=== PATIENT | female | born 1970 | race Caucasian/White ===

== ENCOUNTER 2019-12-05 01:10 | Outpatient (CLI) | payer BC, SELFPAY ==
[2019-12-05 17:41] LABS: SARS-CoV-2 RNA PCR Negative
== END 2019-12-05 01:11 | disposition home or self-care (01) ==
LOC: ANHCOVIDDT 01:10
PROVIDERS: PCP Family Medicine; Visit Provider Internal Medicine Gastroenterology
DX: Z01.812 Encounter for preprocedural laboratory examination (principal); Z20.828 Contact with and (suspected) exposure to other viral communicable diseases
CPT/HCPCS: 87635; C9803; U0003

== ENCOUNTER 2019-12-07 01:20 | Day surgery (SDC) | payer BC, SELFPAY ==
[2019-12-01 14:35] VITALS: BMI 29.9
[2019-12-07 08:46] VITALS: BP 108/63; PULSE 80; RESP 18; TEMP 36.6; O2SAT 98; BMI 30.9
[2019-12-07] MEDS: LACTATED RINGERS 1,000 ML 150 ML IV CONT (08:56)
--- NOTE | 2019-12-07 09:07 | P.PNAN_ITS ---
Anes - Initial Pre Proc Eval Procedure: Operation Date: 12/07/19 09:30 Proposed Procedures p Screening Colonoscopy - Arcenio Joe MD Date/Time: 12/07/19 09:07 Surgeon: Arcenio Joe MD Pre Op Diagnosis: Neoplasm Screening Patient Data Age: 49 Gender: F Height: 5 ft 6 in Weight: 86.9 kg Last Vital Signs Temp 97.8 F 12/07/19 08:46 Pulse 80 12/07/19 08:46 Resp 18 12/07/19 08:46 BP 108/63 12/07/19 08:46 Pulse Ox 98 12/07/19 08:46 Allergies Allergy/AdvReac Type Severity Reaction Status Date / Time No Known Allergies Allergy Verified 12/07/19 08:45 Home Medications Medication Instructions Recorded Confirmed Type peg 3350-electrolytes 236 240 ml PO Q10M #4000 ml 11/01/19 Rx gram-22.74 gram-6.74 gram-5.86 gram solution methylphenidate HCl 10 mg PO DAILY 12/01/19 12/07/19 History Patient hx anesthesia problems: none Family hx anesthesia problems: none [facility] Past Medical History Medical History (Updated 12/07/19 @ 09:07 by Calixto Gannon MD) ADHD (attention deficit hyperactivity disorder) Arthritis Social History Social History (Updated 10/21/19 @ 09:29 by Genia Gilbert) Social History: Smoking status: Never smoker Second hand tobacco smoke exposure: No Alcohol intake: current Drinks per week: 2 Substance use: never Substance use type: does not use Living arrangements: with family Gender identity (if verbalized by the patient): Female Spiritual care concerns: No Anes - Eval Final PreProcedure Day of Procedure 12/07/19 09:07 Patient weight: overweight Heart: regular rate and rhythm Lungs: clear to auscultation Airway: Mallampati scale class II Neurological: alert and oriented Last oral intake: >/= 8 hours ASA classification: II Emergent: no Anesthetic plan: proceed Anesthesia type and monitoring: general GIVS and standard monitoring Informed Consent: The patient's anesthetic plan and its attendant risks and benefits were discussed with the patient/family/POA. Questions were solicited and answers provided to the satisfaction of the patient/family/POA.
--- NOTE | 2019-12-07 09:15 | PM.HPGS ---
History of Present Illness History of Present Illness Consent: Risks, benefits, and alternatives have been discussed and questions answered. Patient agrees to proceed with procedure. Chief complaint: Neoplasm Screening Narrative: Dali Quiñones is a 49 year old female here for first screening colonoscopy Review of Systems Constitutional: Constitutional: Denies headache(s) and Denies weakness Eyes: Eyes: Denies blurry vision ENT: Reports Normal hearing present, Denies headache(s) and Denies neck pain Cardiovascular: Cardiovascular: Denies chest pain and Denies dyspnea Respiratory: Respiratory: Denies dyspnea Gastrointestinal: Gastrointestinal: Reports no additional gastrointestinal complaints Genitourinary: Genitourinary: Denies dysuria Musculoskeletal: Musculoskeletal: Denies neck pain Integumentary/Breasts: Skin/Breast: Denies dry skin Neurologic: Reports Normal hearing present, Denies headache(s) and Denies weakness Psychiatric: Psychiatric: Denies anxiety Endocrine: Endocrine: Denies change in body appearance Hematologic/Lymphatic: Hematologic/Lymphatic: Denies easy bleeding Allergic/Immunologic: Allergic/Immunologic: Denies urticaria [facility] Past Medical History Medical History (Updated 12/07/19 @ 09:15 by Arcenio Joe MD) ADHD (attention deficit hyperactivity disorder) Arthritis Colon cancer screening Social History Social History (Updated 10/21/19 @ 09:29 by Genia Gilbert) Social History: Smoking status: Never smoker Second hand tobacco smoke exposure: No Alcohol intake: current Drinks per week: 2 Substance use: never Substance use type: does not use Living arrangements: with family Gender identity (if verbalized by the patient): Female Spiritual care concerns: No Meds Home Medications and Allergies Home Medications Medication Instructions Recorded Confirmed Type peg 3350-electrolytes 236 240 ml PO Q10M #4000 ml 11/01/19 Rx gram-22.74 gram-6.74 gram-5.86 gram solution methylphenidate HCl 10 mg PO DAILY 12/01/19 12/07/19 History Allergies Allergy/AdvReac Type Severity Reaction Status Date / Time No Known Allergies Allergy Verified 12/07/19 08:45 Vital Signs Vital Signs - 24 hr 12/07/19 08:46 Temperature 97.8 F Pulse Rate 80 Respiratory Rate 18 Blood Pressure 108/63 Pulse Oximetry 98 Exam Const: General: comfortable and no acute distress HENMT: General nose exam: Normal nares present Eyes: General: appearance normal, both eyes and all related structures Neck: Neck: no JVD Resp: Auscultation: clear to auscultation bilaterally Cardio: Rate: regular rate Rhythm: regular rhythm GI: Inspection: non-distended GI Palp: Yes Soft to palpation Skin: General skin exam: normal color Neuro: General: gait normal Speech: normal speech Extrem: General: normal to inspection Psych: Mental Status: mental status grossly normal Assessment and Plan Assessment and plan (1) Colon cancer screening: Code(s): Z12.11 - Encounter for screening for malignant neoplasm of colon Status: Acute Assessment and Plan: will proceed with colonoscopy
[2019-12-07 09:38] VITALS: BP 106/59; PULSE 86; RESP 28; O2SAT 97
[2019-12-07 09:48] VITALS: BP 109/61; PULSE 77; RESP 17; O2SAT 96
[2019-12-07 09:58] VITALS: BP 104/68; PULSE 70; RESP 17; O2SAT 100
== END 2019-12-07 10:00 | disposition home or self-care (01) ==
PROVIDERS: PCP Family Medicine; Visit Provider Internal Medicine Gastroenterology
PROC: 0DJD8ZZ Inspection of Lower Intestinal Tract, Via Natural or Artificial Opening Endoscopic (ICD-10-PCS; CPT 45378; principal; 2019-12-07 09:30)
DX: Z12.11 Encounter for screening for malignant neoplasm of colon (principal); F90.9 Attention-deficit hyperactivity disorder, unspecified type
CPT/HCPCS: 45378; J2704; J7120

== ENCOUNTER → 2019-12-21 13:28 | Outpatient (CLI) | payer BC, SELFPAY ==
--- NOTE | ~2019-12-21 | MM_ITS ---
EXAMINATION: MM screening andrew BI w cortes HISTORY: Screening TECHNIQUE: Craniocaudal and mediolateral oblique 3-D tomosynthesis images were obtained and synthetic 2-D images were generated. CAD analysis was submitted and interpreted. COMPARISON: Comparison to multiple prior studies sequentially, with oldest reviewed study dated 11/16. BREAST PARENCHYMAL COMPOSITION: There are scattered areas of fibroglandular density. FINDINGS: There is no evidence of suspicious mass, calcification, or architectural distortion to sugg est malignancy in either breast. There has been no suspicious interval change. IMPRESSION: 1. No mammographic evidence of malignancy. 2. Recommend routine screening mammography in one year. BI-RADS Category 1: Negative Reviewed, dictated and finalized at location D. DER TRIMMER
== END ==
PROVIDERS: Visit Provider Family Medicine
DX: Z12.31 Encounter for screening mammogram for malignant neoplasm of breast (principal)
CPT/HCPCS: 77063; 77067

== ENCOUNTER 2020-06-12 10:42 | Outpatient (CLI) | payer BC, SELFPAY ==
--- NOTE | ~2020-06-12 | US_ITS ---
US abdomen limited INDICATION: Right upper quadrant pain PROCEDURE: Realtime right upper abdominal ultrasound. COMPARISON: No prior studies for comparison. FINDINGS: The pancreas is normal without focal mass or pancreatic ductal dilation. Liver echotexture is increased, consistent with fatty infiltration. There is normal directional flow in the portal ve in. The gallbladder is normal without stones, gallbladder wall thickening or pericholecystic fluid. Comm on bile duct measures 3 mm. No sonographic Joseph's sign. IMPRESSION: 1: Hepatic steatosis. Reviewed, dictated and finalized at location B. IMPRESSION: 1: Hepatic steatosis.
--- NOTE | ~2020-06-12 | XR_ITS ---
EXAMINATION: XR abdomen obstructive series DATE: 06/12/2020 10:58 INDICATION: Right upper quadrant abdominal pain TECHNIQUE: Supine and upright views of the abdomen. FINDINGS: No prior studies for comparison. The visualized lung parenchyma is normal.. There is a nonobstructed bowel gas pattern. Gas and stool are seen throughout the colon to the level of the rectum. There is no free air. Lung bases are unrem arkable. There are pelvic phleboliths. IMPRESSION: 1. No acute abdominal abnormality. Reviewed, dictated and finalized at location B.
== END 2020-06-12 10:43 | disposition home or self-care (01) ==
PROVIDERS: PCP Family Medicine; Visit Provider Family Medicine
DX: R14.0 Abdominal distension (gaseous) (principal); R10.11 Right upper quadrant pain; K76.0 Fatty (change of) liver, not elsewhere classified
CPT/HCPCS: 74019; 76705

== ENCOUNTER 2022-06-17 11:26 | Outpatient (CLI) | payer BC, SELFPAY ==
--- NOTE | ~2022-06-17 | XR_ITS ---
Left Shoulder Technique: AP and scapular Y views were obtained. Clinical History: Pain Findings: No fracture or dislocation is seen. Osseous alignment is anatomic. There is mild AC joint d egenerative change. Glenohumeral joint is intact. Soft tissues are unremarkable. Impression: . Mild AC joint degenerative change. Reviewed, dictated and finalized at location . Impression: . Mild AC joint degenerative change.
== END 2022-06-17 11:27 | disposition home or self-care (01) ==
PROVIDERS: PCP Family Medicine; Visit Provider Nurse Practitioner Gerontology
DX: M25.512 Pain in left shoulder (principal)
CPT/HCPCS: 73030

== ENCOUNTER 2022-06-18 07:48 | Outpatient (CLI) | payer BC, SELFPAY ==
[2022-06-18 08:35] LABS: Basophils Absolute Auto 0.1 K/mm3 (0.0-0.1); Eosinophils Absolute Auto 0.3 K/mm3 (0-0.3); Eosinophils Percent Auto 4.1 % (0-4.4); Hematocrit 44.2 % (37.0-47.0); Hemoglobin 14.3 g/dL (12.0-15.0); Immature Granulocyte Absolute 0.04 K/mm3 (0.00-0.031); Immature Granulocyte Percent A 0.5 % (0-0.5); Lymphocytes Absolute Auto 2.36 K/mm3 (0.9-3.2); Lymphocytes Percent Auto 29.2 % (18.3-44.2); Mean Corpuscular HGB Conc 32.4 g/dl (32-36); Mean Corpuscular Hemoglobin 26.7 pg (26-34); Mean Corpuscular Volume 82.6 fl (80-100); Mean Platelet Volume 11.7 fl (7.4-10.4); Monocytes Absolute Auto 0.4 K/mm3 (0.1-0.6); Monocytes Percent Auto 5.4 % (2.6-8.5); Neutrophils Absolute Auto 4.8 K/mm3 (1.3-6.7); Neutrophils Percent Auto 59.8 % (45.5-73.1); Platelet Count Result 258 k/mm3 (150-375); Red Blood Count 5.35 M/mm3 (4.2-5.4); Red Cell Distribution Width 14.2 % (11.5-14.5); White Blood Count 8.1 K/mm3 (4.5-10.0)
[2022-06-18 08:44] LABS: Alanine Aminotransferase 86 U/L (6-35); Albumin Level 4.5 g/dL (3.5-5.1); Anion Gap 9 mmol/L (8-16); Aspartate Amino Transferase 45 U/L (14-36); Bilirubin,Total 0.5 mg/dL (0.2-1.3); Blood Urea Nitrogen 16 mg/dL (7-17); Calcium 9.4 mg/dL (8.4-10.2); Carbon Dioxide 25 mmol/L (22-30); Chloride 107 mmol/L (98-107); Estimated Glomerular Filt Rate > 60; Glucose 116 mg/dL (65-110); Sodium 141 mmol/L (137-145)
[2022-06-18 08:45] LABS: Alkaline Phosphatase 81 U/L (38-126); Cholesterol 202 mg/dL (0-200); HDL Direct 50 mg/dL; Triglycerides 116 mg/dL (<150)
[2022-06-18 08:55] LABS: LDL Cholesterol Direct 127 mg/dL
== END 2022-06-18 07:49 | disposition home or self-care (01) ==
PROVIDERS: PCP Family Medicine; Visit Provider Nurse Practitioner Gerontology
DX: Z00.00 Encounter for general adult medical examination without abnormal findings (principal)
CPT/HCPCS: 36415; 80053; 80061; 84443; 85025

== ENCOUNTER 2022-07-30 15:00 | Outpatient (CLI) | payer BC, SELFPAY ==
[2022-07-31 07:56] LABS: Anion Gap 6 mmol/L (8-16); Carbon Dioxide 28 mmol/L (22-30); Chloride 102 mmol/L (98-107); Potassium 3.8 mmol/L (3.4-5.0); Sodium 136 mmol/L (137-145)
[2022-07-31 07:57] LABS: Alanine Aminotransferase 76 U/L (6-35); Albumin Level 4.5 g/dL (3.5-5.1); Alkaline Phosphatase 62 U/L (38-126); Aspartate Amino Transferase 60 U/L (14-36); Blood Urea Nitrogen 14 mg/dL (7-17); Calcium 9.1 mg/dL (8.4-10.2); Estimated Glomerular Filt Rate > 60; Glucose 95 mg/dL (65-110); Total Protein 7.6 g/dL (6.3-8.2)
[2022-07-31 07:59] LABS: Hemoglobin A1C 5.5 % (<5.7)
== END 2022-07-30 15:01 | disposition home or self-care (01) ==
LOC: ANHLAB 15:01
PROVIDERS: PCP Family Medicine; Visit Provider Physician Assistant
DX: R73.01 Impaired fasting glucose (principal); R74.8 Abnormal levels of other serum enzymes
CPT/HCPCS: 36415; 80053; 83036

== ENCOUNTER 2022-08-07 09:59 | Outpatient (CLI) | payer BC, SELFPAY ==
--- NOTE | ~2022-08-07 | US_ITS ---
Abdominal Sonogram: Real-time sonographic imaging of the abdomen was performed. Clinical History: Abnormal serum enzymes Findings: The liver appears echogenic, with no evidence of mass lesion or bile duct dilatation. Main portal vein demonstrates normal direction of flow. The spleen is normal in size without evidence of focal lesion. The gallbladder is well distended, and appears normal with no evidence of gallstone or wall thickening. The common bile duct measures 5 mm. The visualized pancreas, aorta, and IVC are un remarkable. The right kidney measures 10.7 cm in length and the left kidney measures 11.3 cm. There is no hydronephrosis or renal calculus. Impression: Diffuse fatty infiltration of the liver. Reviewed, dictated and finalized at location M. Impression: Diffuse fatty infiltration of the liver.
== END 2022-08-07 10:00 | disposition home or self-care (01) ==
PROVIDERS: PCP Family Medicine; Visit Provider Nurse Practitioner Gerontology
DX: R74.8 Abnormal levels of other serum enzymes (principal); K76.0 Fatty (change of) liver, not elsewhere classified
CPT/HCPCS: 76700

== ENCOUNTER 2022-09-17 09:00 | Outpatient (RCR) | payer BC, SELFPAY ==
--- NOTE | 2022-07-21 16:56 | PTOPEVAL1 ---
Assessment and note entered by Buster Llamas, PT, DPT Evaluation Information Assessment Status Evaluation Diagnosis L shoulder pain Onset 4 months Subjective Information Pt states initial she just realized she could not sleep on her L shoulder. She denies a BERLIN. She states it has progressed to not being able to reach over head and pain when using her shoulder. She denies pain at rest. She states when reaching overhead it will be a sharp pain and it makes multiple minutes for the pain to desipates. 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 Reported Pain Level Pain Score 1: Self Report Assessment PT Clinical Summary Dali presents to therapy today for her initial evaluation with a diagnosis of L shoulder impingement. Today she demonstrates decreased active shoulder ROM on the L compared to R, decreased strength against resistance, and tenderness to palpation. Skilled physical therapy services are indicated to address the deficits noted above, to improve posture and body mechanics , to manage pain, and to return to PLOF. Plan of Care Interventions Electrical Stimulation,Gait Training,Hot Pack/Cold Pack,Manual Therapy,Neuro Re-education,Patient/ Caregiver Educati,Therapeutic Activities, Therapeutic Exercise,Ultrasound PT Services Indicated Yes Treatment Frequency and 2x/ wk for 4wks Duration These treatments will address the objective and functional deficits as defined above. The patient will be advanced safely and appropriately in order for the patient to progress towards his/her prior level of function. Additional exercises will be introduced and as well as a comprehensive home exercise program upon discharge, if needed, ?to ensure carryover of functional gains achieved in the clinic. This treatment plan has been reviewed and agreement upon by the patient.
--- NOTE | 2022-07-22 13:31 | OPREHPOC ---
Outpatient Therapy Plan of Care This is a Multidisciplinary Plan of Care that may contain components documented by all disciplines (PT, OT, and ST.) PT Problem 1 PT Problem #1 Knowledge Deficit PT Goal 1 Goal Pt to be IND with issued HEP Target Visit 8 PT Problem 2 PT Problem #2 Pain PT Goal 1 Goal Pt to report shoulder pain no greater than 3/10 in the last week Target Visit 8 PT Goal 2 Goal Pt to report 75% improvement in overall symptoms Target Visit 8 PT Problem 3 PT Problem #3 Impaired Range of Motion PT Goal 1 Goal Pt to improve active shoulder abduction ROM to 140 deg Target Visit 8 PT Goal 2 Goal Pt to increased functional shoulder int rot ROM T10 Target Visit 8 PT Problem 4 PT Problem #4 Impaired Strength PT Goal 1 Goal Pt to increased L shoulder strength equal to R shoulder Target Visit 8 PT Goal 2 Goal Pt to be able to lift 5lb overhead without an increase in symptoms Target Visit 8
--- NOTE | 2022-08-11 09:33 | PCPTNOTE ---
Patient called & cancelled scheduled appointment this date due to being sick.
--- NOTE | 2022-08-18 11:14 | PCPTNOTE ---
Pt NS her appt today stating she had her days mixed up. She was reminded of her next appt, a re-eval.
--- NOTE | 2022-08-20 09:56 | PTOPPROG ---
Assessment and note entered by Buster Llamas, PT, DPT Evaluation Information Assessment Status Progress Diagnosis L shoulder pain Onset 4 months Subjective Information Pt states overall her shoulder is doing very good. She reports 80% improvement in her overall symptoms. She states daily tasks have improved. Pt reports one twinge of pain in the last week. Assessment PT Clinical Summary Dali presents to therapy today for her progress report following 6 visits of skilled therapy to treat her diagnosis of L shoulder impingement. Today she demonstrates improve shoulder abduction which is now equal to her uninvolved side, but continues to have decreased shoulder flexion and internal rotation compared to her R side. Her strength has improved but still has minor limitations d/t musca endurance. Continuation of skilled therapy services are indicated address remaining goals and to limit functional impairments. Plan of Care Interventions Electrical Stimulation,Gait Training,Hot Pack/Cold Pack,Manual Therapy,Neuro Re-education,Patient/ Caregiver Educati,Therapeutic Activities, Therapeutic Exercise,Ultrasound PT Services Indicated Yes Treatment Frequency and 1x/ wk for 4wks Duration These treatments will address the objective and functional deficits as defined above. The patient will be advanced safely and appropriately in order for the patient to progress towards his/her prior level of function. Additional exercises will be introduced and as well as a comprehensive home exercise program upon discharge, if needed, ?to ensure carryover of functional gains achieved in the clinic. This treatment plan has been reviewed and agreement upon by the patient.
--- NOTE | 2022-09-17 09:46 | PTOPDC ---
Assessment and note entered by Buster Llamas, PT, DPT Evaluation Information Assessment Status Discharge Diagnosis L shoulder pain Onset 4 months Subjective Information Pt states overall her shoulder is going well. She can see herself continuing to improve. She states she is not 100% yet but at least 90% improvement with reaching behind her back being the largest difficulty. Reported Pain Level Pain Score 0: Self Report Assessment PT Clinical Summary Dali presents to therapy today for her progress report following 10 visits of skilled therapy to treat her diagnosis of L shoulder impingement. Today she demonstrates improved active shoulder ROM in all directions. She continues to have minor int rot deficits but this continues to progress. She reports an 90% return to PLOF. She would like to continue her HEP on her own since she is doing so well. She will therefore be discharged at this time. Plan of Care PT Services Indicated No
== END 2022-09-17 10:08 | disposition home or self-care (01) ==
LOC: ANHGOSHPT 09:00
PROVIDERS: PCP Family Medicine; Visit Provider Physician Assistant Surgical
DX: M75.42 Impingement syndrome of left shoulder (principal)
CPT/HCPCS: 97032; 97110; 97112; 97140; 97161; 97530; 99199

== ENCOUNTER 2022-09-29 07:29 | Outpatient (CLI) | payer BC, SELFPAY ==
--- NOTE | ~2022-09-29 | MM_ITS ---
EXAMINATION: MM screening andrew BI w cortes HISTORY: Screening TECHNIQUE: Craniocaudal and mediolateral oblique 3-D tomosynthesis images were obtained and synthetic 2-D images were generated. CAD analysis was submitted and interpreted. COMPARISON: Comparison to multiple prior studies sequentially, with oldest reviewed study dated 04/2014. BREAST PARENCHYMAL COMPOSITION: There are scattered areas of fibroglandular density. FINDINGS: There is a new mass in the lower central aspect of the right breast near the areola. The le ft breast is stable without evidence for malignancy. IMPRESSION: 1. New right breast mass anteriorly, lower inner aspect. 2. Additional mammographic views and possible breast ultrasound are recommended. BI-RADS Category 0: Incomplete: Needs additional imaging evaluation. Reviewed, dictated and finalized at location A. IMPRESSION: 1. New right breast mass anteriorly, lower inner aspect. 2. Additional mammographic views and possible breast ultrasound are recommended . BI-RADS Category 0: Incomplete: Needs additional imaging evaluation.
== END 2022-09-29 07:30 | disposition home or self-care (01) ==
LOC: ANHIMG 07:32
PROVIDERS: PCP Family Medicine; Visit Provider Nurse Practitioner Gerontology
DX: Z12.31 Encounter for screening mammogram for malignant neoplasm of breast (principal); R92.8 Other abnormal and inconclusive findings on diagnostic imaging of breast
CPT/HCPCS: 77063; 77067

== ENCOUNTER → 2022-10-16 08:21 | Outpatient (CLI) | payer BC, SELFPAY ==
--- NOTE | ~2022-10-16 | MMUS_ITS ---
EXAMINATION: MM diagnostic andrew RT w cortes, US breast RT limited HISTORY: Right breast mass on screening mammogram TECHNIQUE: Additional 3-D tomosynthesis images of the right breast were performed and synthetic 2-D i mages were generated. CAD analysis was submitted and interpreted. High resolution limited right breas t ultrasound was performed. COMPARISON: 09/29/2022, 12/21/2019, 06/03/2017 FINDINGS: MAMMOGRAPHIC FINDINGS: There is a 6 mm round, circumscribed, equal density mass at the 6:00 location of the breast 2 cm from the nipple. No suspicious calcification or architectural distortion are identified. ULTRASOUND: There is an 8 mm x 5 mm cyst corresponding to the mammographic finding in question. No suspicious mas s is identified. IMPRESSION: 1. No mammographic or sonographic evidence of malignancy. 2. Recommend routine screening mammography in one year. BI-RADS Category 2: Benign finding(s). Reviewed, dictated and finalized at location L. IMPRESSION: 1. No mammographic or sonographic evidence of malignancy. 2. Recommend routine screening mammography in one year. BI-RADS Category 2: Benign finding(s).
== END ==
PROVIDERS: PCP Family Medicine; Visit Provider Physician Assistant
DX: R92.8 Other abnormal and inconclusive findings on diagnostic imaging of breast (principal)
CPT/HCPCS: 76642; 77061; 77065; G0279

== ENCOUNTER 2024-08-01 08:33 | Outpatient (CLI) | payer OTHER, SELFPAY ==
--- OUTSIDE RECORDS SUMMARY | 2024-08-01 08:45 | XMS_ITS | Encounter Summary ---
Author Organization [facility] [facility] Address 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 Gender Identity Not on file Sexual Orientation Not on file documented as of this encounter Plan of Treatment Not on file documented as of this encounter Procedures Procedure Name Priority Date/Time Associated Diagnosis Comments XR KNEE 4+ VW RIGHT Routine 06/30/2007 1 1:16 AM CDT documented in this encounter Results * XR KNEE 4+ VW RIGHT (06/30/2007 11:16 AM CDT) Anatomical Region Laterality Modality Lower Extremity Other 06/30/2007 11:1 6 AM CDT Narrative 06/30/2007 11:18 AM CDT [facility] [address] [place], [place] [address] Admit Date: 06/30/2007 DALI RAMIREZ Sex: F Admit Prov: ELMER JI Date: 1970 Primary Care Prov: ELMER JI CMRN: [id number] Room: [facility] SSN: [id number] IMAGING SERVICES Ordering Prov: N/A Accession Number: [id number] Interpretation Examination: Right knee. 4 views Clinical History: Pain. Findings: Examination of the right knee fails to demonstrate evidence of fracture, dislocation, or subluxation. No distinct joint space abnormality or loose intra-articular foreign body is seen. Impression: Radiographically normal right knee. . Dictated by: Oz TEJADA 06/30/2007 11:18 Electronically signed by: Oz TEJADA 06/30/2007 11:18 Procedure Note Provider, Historical - 06/30/2007 [facility] [address] [place], [place] [address] Admit Date: 06/30/2007 DALI RAMIREZ Sex: F Admit Prov: ELMER JI Date: 1970 Primary Care Prov: ELMER JI CMRN: [id number] Room: [facility] SSN: [id number] IMAGING SERVICES Ordering Prov: N/A Interpretation Examination: Right knee. 4 views Clinical History: Pain. Findings: Examination of the right knee fails to demonstrate evidenceof fracture, dislocation, or subluxation. No distinct joint spaceabnormality or loose intra-articular foreign body is seen. Impression: Radiographically normal right knee. . Dictated by: Oz TEJADA 06/30/2007 11:18 Electronically signed by: Oz TEJADA 06/30/2007 11:18 Elmer Ji MD DIAGNOSTIC IMAGING ORDERABLES Final Result documented in this encounter Visit Diagnoses Diagnosis Pain in limb documented in this encounter Care Teams Chefs Relationship Specialty Start Date End Date Elmer Ji MD PCP - General 06/14/07 04/14/21 documented as of this encounter
--- OUTSIDE RECORDS SUMMARY | 2024-08-01 08:45 | XMS_ITS | Encounter Summary ---
Author Organization [employer] Address 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
--- OUTSIDE RECORDS SUMMARY | 2024-08-01 08:45 | XMS_ITS | Clinical Summary ---
Author Organization [facility] Address [address] [place] [address] [place] [address] Care Team Providers Care Ink Blender Name Role Phone Unavailable Primary Care Provider Unavailabl e Allergies No known active allergies Medications methylphenidate HCl (Ritalin) 20 mg tablet Take 1 tablet by mouth in the morning and 1/2 tablet by mouth midday 45 Tablet 06/16/2023 11:35 AM CDT 06/15/2023 Active Active Problems Problem Noted Date Diagnosed Date Depression 11/21/2009 Encounters Date Type Department Care Team Description 05/04/2024 External Device Data [facility] ABSTRACTION Provider, Abstract from Last 3 Months Immunizations Immunization Administration Dates Next Due (ADACEL/BOOSTRIX)(10 YR UP) TDAP VACCINE, 0.5ML, IM 11/21/2009 (TDVAX)(7 YRS UP) TETANUS AN D DIPHTHERIA TOXOIDS, ADSORBED (2 LF OF TETANUS TOXOID AND 2 LF OF DIPHTHERIA TOXOID), 0.5ML (PF), IM 08/17/2003 Influenza Vaccine Split 3+ Yrs IM 11/21/2009 Family History Medical History Relation Name Comments Healthy Father accident Hypertension Mother Relation Name Status Comments Father accident Mother Alive Social History Tobacco Use Types Packs/Day Years Used Date Smoking Tobacco: Never Alcohol Use Standard Drinks/Week Comments Yes 0 (1 standard drink = 0.6 oz pur e alcohol) Comments No Sex and Gender Information Value Date Recorded Sex Assigned at Not on file 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 Gender Identity Not on file Sexual Orientation Not on file Last Filed Vital Signs Vital Sign Reading Time Taken Comments Blood Pressure 104/70 06/13/2010 9:25 AM CDT Pulse 76 06/13/2010 9:25 AM CDT Temperature 36.9 C (98.4 F) 06/13/2010 9:25 AM CDT Respiratory Rate - - Oxygen Saturation - - Inhaled Oxygen Concentration - - Weight 74.1 kg (163 lb 6.4 oz) 06/13/2010 9:25 A M CDT Height 163.8 cm (5' 4.5) 11/21/2009 9:46 AM CDT Body Mass Index 27.61 11/21/2009 9:46 AM CDT Plan of Treatment Health Maintenance Due Date Last Done Comments HEPATITIS B VACCINES (1 of 3 - 19+ 3-dose series) 1988 PAP SMEAR 11/21/2012 11/21/2009, 09/2008, 10/24/2008, Additional history exists FIT-DNA Q 3 years 2014 FIT/FOBT Q 1 year 2014 Flex Sig/CT Colonography Q 5 years 2014 CERVICAL CANCER SCREENING 11/21/2014 HPV/Cotest (21-29) 11/21/2014 11/21/2009, 0 10/24/2008, 07/07/2007 HPV/Cotest (30-65) 11/21/2014 11/21/2009, 0 10/24/2008, 07/07/2007 ZOSTER VACCINE (1 of 2) 07/13/2019 DTAP/TDAP/TD VACCINES (2 - T d or Tdap) 11/22/2019 11/21/2009, 08/17/2003 BREAST CANCER SCREENING 12/20/2020 12/21/19, 12/21/2019, 06/03/2017, Additional history exists INFLUENZA VACCINE (#1) 2023 11/21/2009 COLORECTAL SCREENING 12/06/2029 12/07/2019 Colorectal Cancer Screening 12/06/2029 Procedures Procedure Name Priority Date/Time Associated Diagnosis Comments CERV/VAG CYTOPATH, THIN PREP IMAGR RFLX HPV Routine 11/21/2009 4:38 PM CDT Routine gynecological examination MAMMO SCREEN BILAT W OR WO CAD Routine 11/09/2009 1:55 PM CDT Screening Mammogram from Last 3 Months or Most Recently Relevant to Health Maintenance Results * CERV/VAG CYTOPATH, THIN PREP IMAGR RFLX HPV (11/21/2009 4:38 PM CDT) PAP INTERP Negative for intraepithelial lesion or malignancy. [facility] CYTOLOGY INFECTION Fungal organisms morphologically consistent with Tiffany spp. 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 Based on the cytology result, reflex High Risk HPV DNA testing was not performed. [facility] ADEQUACY: Satisfactory for evaluation. Endocervical/trans formation zone component present. Age and/or menstrual status not provided [facility] CLINICAL INFORMATION Information not provided [facility] SOURCE Endocervix [facility] PREV PAP: INFORMATION NOT PROVIDED [facility] CYTOTECHNOLOGI ST: ABC, CT(ASCP) [facility] Comment: Lab test performed by: [facility] [address] [address] NAM MEIER DO LAST MENSTRUAL PERIOD INFORMATION NOT PROVIDED [facility] PREV BX: INFORMATION NOT PROVIDED [facility] REPORT STATUS FINAL [facility] Endocervical 11/21/2009 4:38 PM CDT 11/21/2009 5:06 PM CDT Comment:ENDOCERVICAL us Amrit Burciaga MD PATHOLOGY/CYTOLOGY ORDERABLES Final Result [facility] CLIA# [id number] [address] [facility] [place] [address] * MAMMO DIGITAL SCREEN BILAT (11/09/2009 1:55 PM CDT) Anatomical Region Laterality Modality Breast Bilateral Mammography Narrative 11/12/2009 8:06 AM CDT BILATERAL FULL FIELD DIGITAL SCREENING MAMMOGRAM WITH CAD. Date of exam: 11/09/09 History: Routine Screening. Technique: Full field digital craniocaudal and mediolateral oblique projections of both breasts were obtained. This is the patient's baseline study. Breast Parenchymal Composition: Scattered fibroglandular densities. Findings: No dominant masses, suspicious calcifications, parenchymal asymmetry or areas of architectural distortion are identified in either breast. The computer aided detection system was utilized. OVERALL ASSESSMENT: BI-RADS category 1: Negative. Recommendation: Annual mammography is recommended. Procedure Note Peri Alex - 11/12/2009 BILATERAL FULL FIELD DIGITAL SCREENING MAMMOGRAM WITH CAD. Date of exam: 11/09/09 History: Routine Screening. Technique: Full field digital craniocaudal and mediolateral obliqueprojections of both breasts were obtained. This is the patient's baselinestudy. Breast Parenchymal Composition: Scattered fibroglandular densities. Findings: No dominant masses, suspicious calcifications, parenchymalasymmetry or areas of architectural distortion are identified in eitherbreast. The computer aided detection system was utilized. OVERALL ASSESSMENT: BI-RADS category 1: Negative. Recommendation: Annual mammography is recommended. Amrit Burciaga MD MAMMO ORDERABLES Final Result from Last 3 Months or Most Recently Relevant to Health Maintenance Insurance [facility] [id number] [employer]
--- OUTSIDE RECORDS SUMMARY | 2024-08-01 08:45 | XMS_ITS | Encounter Summary ---
Author Organization [employer] Address 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
[2024-08-01 09:01] LABS: Hematocrit 44.1 % (37.0-47.0); Hemoglobin 14.1 g/dL (12.0-15.0); Mean Corpuscular Hemoglobin 25.8 pg (26-34); Mean Corpuscular Volume 80.8 fl (80-100); Mean Platelet Volume 11.9 fl (7.4-10.4); Platelet Count Result 223 k/mm3 (150-375); Red Blood Count 5.46 M/mm3 (4.2-5.4); Red Cell Distribution Width 14.9 % (11.5-14.5); White Blood Count 7.2 K/mm3 (4.5-10.0)
[2024-08-01 09:13] LABS: Alanine Aminotransferase 85 U/L (6-35); Albumin Level 4.3 g/dL (3.5-5.1); Alkaline Phosphatase 89 U/L (38-126); Anion Gap 9 mmol/L (4-12); Aspartate Amino Transferase 60 U/L (14-36); Bilirubin,Total 0.5 mg/dL (0.2-1.3); Blood Urea Nitrogen 15 mg/dL (7-17); Calcium 9.2 mg/dL (8.4-10.2); Carbon Dioxide 23 mmol/L (22-30); Chloride 110 mmol/L (98-107); Cholesterol 176 mg/dL (0-200); Estimated Glomerular Filt Rate > 60; Glucose 101 mg/dL (65-110); HDL Direct 46 mg/dL; Sodium 142 mmol/L (137-145); Total Protein 7.4 g/dL (6.3-8.2); Triglycerides 105 mg/dL (<150)
[2024-08-01 09:23] LABS: LDL Cholesterol Direct 102 mg/dL
[2024-08-01 09:45] LABS: Add Urine Microscopic? YES; Appearance Urine Clear (Clear); Bacteria Urine 2+ /hpf; Bilirubin Urine Negative (Negative); Blood Urine Negative (Negative); Color Urine Yellow (Yellow); Glucose Urine UA Negative (Negative); Ketones Urine Trace mg/dL (Negative); Leukocyte Esterase Ur Trace LEU/UL (Negative); Nitrate Urine Negative (Negative); Non Pathogenic Casts 0-2; Protein Urine Negative (Negative); RBC Urine 0-2 /hpf (0-2); Specific Grav Ur 1.026 (1.001-1.035); Squamous Epithelial Cell Urine Few /hpf (Few); Urobilinogen Urine 0.2 mg/dL (<2.0)
[2024-08-01 12:52] LABS: Hemoglobin A1C 5.8 % (<5.7)
== END 2024-08-01 08:34 | disposition home or self-care (01) ==
LOC: ANHLAB 08:37
PROVIDERS: PCP Family Medicine; Visit Provider Physician Assistant
DX: Z00.00 Encounter for general adult medical examination without abnormal findings (principal); R73.01 Impaired fasting glucose; R74.8 Abnormal levels of other serum enzymes; K76.0 Fatty (change of) liver, not elsewhere classified; E78.5 Hyperlipidemia, unspecified
CPT/HCPCS: 36415; 80053; 80061; 81001; 83036; 84443; 85027

== ENCOUNTER 2025-01-19 08:48 | Outpatient (CLI) | payer OTHER, SELFPAY ==
--- OUTSIDE RECORDS SUMMARY | 2025-01-19 09:12 | XMS_ITS | Encounter Summary ---
Author Organization [facility] Address 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
--- OUTSIDE RECORDS SUMMARY | 2025-01-19 09:12 | XMS_ITS | Clinical Summary ---
Author Organization [facility] Address [id number] [place] [address] [place] [address] Care Team Providers Care Cellulose Insulation Helper Name Role Phone Unavailable Primary Care Provider Unavailabl e Allergies No known active allergies Medications methylphenidate HCl (Ritalin) 20 mg tablet Take 1 tablet by mouth in the morning and 1/2 tablet by mouth midday 45 Tablet 06/16/2023 11:35 AM CDT 06/15/2023 Active Active Problems Problem Noted Date Diagnosed Date Depression 11/21/2009 Immunizations Immunization Administration Dates Next Due (ADACEL/BOOSTRIX)(10 [...] on file 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 [facility] CYTOLOGY INFECTION Fungal organisms morphologically consistent with Tiffany spp. 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 Based on the cytology result, reflex High Risk HPV DNA testing was not performed. [facility] ADEQUACY: Satisfactory for evaluation. Endocervical/trans formation zone component present. Age and/or menstrual status not provided [facility] CLINICAL INFORMATION Information not provided [facility] SOURCE Endocervix [facility] PREV PAP: INFORMATION NOT PROVIDED [facility] CYTOTECHNOLOGI ST: ABC, CT(ASCP) [facility] Comment: Lab test performed by: [facility] [address] [id number] NAM MEIER DO LAST MENSTRUAL PERIOD INFORMATION NOT PROVIDED [facility] PREV BX: INFORMATION NOT PROVIDED [facility] REPORT STATUS FINAL [facility] Endocervical 11/21/2009 4:38 PM CDT 11/21/2009 5:06 PM CDT Comment:ENDOCERVICAL us Amrit Burciaga MD PATHOLOGY/CYTOLOGY ORDERABLES Final Result [facility] CLIA# [id number] [address] [facility] [place] [address] * MAMMO DIGITAL SCREEN BILAT (11/09/2009 1:55 [...] Most Recently Relevant to Health Maintenance Insurance [facility] [employer] PPO [id number] [employer]
--- OUTSIDE RECORDS SUMMARY | 2025-01-19 09:12 | XMS_ITS | Encounter Summary ---
Author Organization [employer] Address 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
--- OUTSIDE RECORDS SUMMARY | 2025-01-19 09:12 | XMS_ITS | Encounter Summary ---
Author Organization [facility] Address 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 4 views Clinical History: Pain. Findings: Examination of the right knee fails to demonstrate evidence of fracture, dislocation, or subluxation. No distinct joint space abnormality or loose intra-articular foreign body is seen. Impression: Radiographically normal right knee. . Dictated by: Oz TEJADA 06/30/2007 11:18 Electronically signed by: Oz TEJADA 06/30/2007 11:18 Procedure Note Provider, Historical - 06/30/2007 [facility] [address] [place], [place] [address] Admit Date: 06/30/2007 DALI RAMIREZ Sex: F Admit Prov: ELMER JI Date: 1970 Primary Care Prov: ELMER JI CMRN: [id number] Room: [facility] SSN: [id number] IMAGING SERVICES Ordering Prov: N/A Interpretation Examination: [...] limb documented in this encounter Care Teams Site Medical Director Relationship Specialty Start Date End Date Elmer Ji MD PCP - General 06/14/07 04/14/21 documented as of this encounter
[2025-01-19 09:16] LABS: Hemoglobin A1C 5.3 % (<5.7)
[2025-01-19 09:23] LABS: Alanine Aminotransferase 71 U/L (6-35); Albumin Level 4.8 g/dL (3.5-5.1); Alkaline Phosphatase 107 U/L (38-126); Anion Gap 8 mmol/L (4-12); Aspartate Amino Transferase 46 U/L (14-36); Bilirubin,Total 0.5 mg/dL (0.2-1.3); Blood Urea Nitrogen 16 mg/dL (7-17); Calcium 9.6 mg/dL (8.4-10.2); Carbon Dioxide 26 mmol/L (22-30); Chloride 108 mmol/L (98-107); Estimated Glomerular Filt Rate > 60; Glucose 74 mg/dL (65-110); Potassium 3.5 mmol/L (3.4-5.0); Sodium 142 mmol/L (137-145); Total Protein 8.5 g/dL (6.3-8.2)
== END 2025-01-19 08:49 | disposition home or self-care (01) ==
LOC: ANHLAB 08:49
PROVIDERS: PCP Family Medicine; Visit Provider Physician Assistant
DX: R74.8 Abnormal levels of other serum enzymes (principal); R73.01 Impaired fasting glucose; K76.0 Fatty (change of) liver, not elsewhere classified
CPT/HCPCS: 36415; 80053; 83036